=== PATIENT | male | born 1980 | race Caucasian/White ===

== ENCOUNTER → 2017-09-23 | Outpatient (CLI) | payer OTHER ==
[~2017-09-23] MED LIST: ADVIN10/60 INH; AZITTAB PO; BUPR8MIS SL; CLR10 PO; FLUT0.15 NAE; LISI-725 PO; METO25TA56 PO; TESTOSTERONE
--- NOTE | 2017-09-23 16:34 | DIAGNOSTIC IMAGING REPORT ---
CERVICAL WITHOUT CONTRAST HISTORY: Pain. Neuropathy. CERVICALIGIA, LUMBER/CERVICAL RADICULOPATHY TECHNIQUE: Multiplanar multisequence MRI of the cervical spine was performed without the use of contrast. COMPARISON STUDY: None. FINDINGS: Unremarkable signal characteristics of the vertebral bodies as well as intervertebral disc. Normal signal characteristics the cervical cord. C2-C3: No significant central canal or neural foraminal narrowing. C3-C4: No significant central canal or neural foraminal narrowing. C4-C5: No significant central canal or neural foraminal narrowing. C5-C6: No significant central canal or neural foraminal narrowing. C6-C7: No significant central canal or neural foraminal narrowing. C7-T1: No significant central canal or neural foraminal narrowing. IMPRESSION: Normal study The above report was generated using voice recognition software. It may contain grammatical, syntax or spelling errors. Electronically signed by: Mir Hollingsworth M.D. 09/23/2017 4:33 PM Dictated Date/Time: 09/23/2017 4:29 PM
--- NOTE | 2017-09-23 16:39 | DIAGNOSTIC IMAGING REPORT ---
LUMBAR SPINE W/O CONTRAST HISTORY: Pain. Neuropathy. CERVICALIGIA, LUMBER/CERVICAL RADICULOPATHY TECHNIQUE: Multiplanar multisequence MRI of the lumbar spine was performed without the use of contrast. COMPARISON: None. FINDINGS: For the purpose of the report the L5-S1 disc space will be located on axial image 23 of 25. Normal signal characteristics of the vertebral bodies. Mild disc desiccation L5-S1. L1-L2: No significant central canal or neural foraminal narrowing. L2-L3: No significant central canal or neural foraminal narrowing. 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 L4-L5: No significant central canal or neural foraminal narrowing. L5-S1: Broad-based bulging disc with minimal impact anterior thecal sac. Neuroforamina are patent bilaterally. IMPRESSION: 1. Mild broad-based bulging disc L5-S1 with minimal impact upon the anterior thecal sac. 2. The remainder of the lumbar spine is negative. 3. 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 The above report was generated using voice recognition software. It may contain grammatical, syntax or spelling errors. Electronically signed by: Mir Hollingsworth M.D. 09/23/2017 4:38 PM Dictated Date/Time: 09/23/2017 4:33 PM
== END | disposition home or self-care (01) ==
LOC: C.MRI 15:07
PROVIDERS: ATTEND Family Medicine
DX: M54.12 Radiculopathy, cervical region (principal); M54.16 Radiculopathy, lumbar region